=== PATIENT | male | born 1990 | race Caucasian/White ===

== ENCOUNTER 2017-05-23 10:43 | Emergency (ER) | payer BC, OTHER ==
[~2017-05-23] VITALS: Ht 175.3 cm; Wt 120.8 kg
[2017-05-23 10:54] VITALS: BP 101/65
--- NOTE | 2017-05-23 10:59 | NUR ---
PATIENT TO BED 7
--- NOTE | 2017-05-23 11:00 | NUR ---
27/M BIB SELF C/O LEFT RIB PAIN 12/18 POST FALL OFF A [employer] BOARD 05/20/17. HX OF BIPOLAR & DEPRESSION. AAOX4 WITH EVEN AND STEADY GAIT; LUNGS CLEAR BL; PT DENIES ANY FEVER, CP, SOB, OR COUGH AT THIS TIME; PATIENT POSITIONED FOR COMFORT; HOB ELEVATED; BEDRAILS UP X2; BED DOWN. ER MADE AWARE OF PT STATUS. Addendum: 05/23/17 at 1207 by [email or web address] DENIES LOC
[2017-05-23] MEDS ORDERED: KETOROLAC 60 MG/2 ML VIAL IM ONE (13:00)
[2017-05-23 13:29] VITALS: BP 132/77
--- NOTE | 2017-05-23 13:29 | NUR ---
Patient discharged with BP 132/77,DENIES HEADACHE AT THIS TIME.MD MADE AWARE. Written and verbal after care instructions given and explained. Patient alert, oriented and verbalized understanding of instructions. Ambulatory with steady gait. All questions addressed prior to discharge. ID band removed. Patient advised to follow up with PMD. Rx of MOTRIN given. Patient educated on indication of medication including possible reaction and side effects. Opportunity to ask questions provided and answered.
== END 2017-05-23 13:29 | disposition home or self-care (01) ==
LOC: MED 10:43
DX: S20.20XA Contusion of thorax, unspecified, initial encounter (principal); F32.9 Major depressive disorder, single episode, unspecified; F17.210 Nicotine dependence, cigarettes, uncomplicated; V00.131A Fall from skateboard, initial encounter; Y93.51 Activity, roller skating (inline) and skateboarding; Y92.89 Other specified places as the place of occurrence of the external cause; Y99.8 Other external cause status
CPT/HCPCS: 71101; 96372; 99284; J1885

== ENCOUNTER 2019-11-28 02:50 | Inpatient (IN) | payer OTHER ==
[~2019-11-28] VITALS: Ht 182.9 cm; Wt 113.4 kg
--- NOTE | 2019-11-28 02:50 | NUR ---
PT BIBA AND ON 5150 FOR COMBATIVE AT HOME. PER EMS PT HAS NOT SLEPT IN 2 WEEKS AND HAS STOPPED TAKING LITHIUM X 2 WEEKS AGO. PT IS AAXO. PT UNABLE TO ANSWER QUESTIONS. PT YELLING AND BEING AGRESSIVE WITH MEDICAL STAFF. PT VSS. EMS STATE PT IS NOT ON DRUGS OR UNDER THE INFULENCE. PT PLACED IN RESTRAINTS. PMSC GOOD PRIOR TO AND AFTER RESTRAINTS. JACKI DRIVER AT BEDSIDE SITTING WITH PT. SKIN IS PINK/WARM/DRY; LUNGS CLEAR BL; HR EVEN AND REGULAR; HOB ELEVATED; BEDRAILS UP X2; BED DOWN. ER MD MADE AWARE OF PT STATUS.
[2019-11-28 02:51] VITALS: BP 110/81
[2019-11-28] MEDS ORDERED: diphenhydrAMINE 50 MG/ML VIAL IM ONE (02:55)
[2019-11-28] MEDS ORDERED: HALOPERIDOL IM 5 MG/ML VIAL IM ONE (02:55)
[2019-11-28] MEDS ORDERED: LORazepam 2 MG/ML VIAL IM ONE (02:55)
[2019-11-28] MEDS ORDERED: NACL 0.9% 1,000 ML IV ONE ×2 (02:55→05:25)
--- NOTE | 2019-11-28 03:06 | NUR ---
LAB AT BEDSIDE. EXPLAINED TO LAB, LET PT CALM DOWN AFTER MEDICATION. THEN DRAW LABS.
[2019-11-28 03:47] LABS: BASOPHILS # (AUTO) 0.1 K/uL (0.00-0.22); BASOPHILS % (AUTO) 0.4 % (0.0-2.0); EOSINOPHILS % (AUTO) 0.1 % (0.0-4.0); HEMATOCRIT 45.5 % (36-52); HEMOGLOBIN 15.1 g/dL (12.0-18.0); LYMPHOCYTES # (AUTO) 0.9 K/uL (2.0-11.5); MEAN CORPUSCULAR HEMOGLOBIN 28 pg (27-31); MEAN CORPUSCULAR HGB CONC 33 g/dL (33-37); MEAN CORPUSCULAR VOLUME 84.9 fL (80-94); MONOCYTES # (AUTO) 0.8 K/uL (0.8-1.0); MONOCYTES % (AUTO) 4.3 % (1.7-9.3); NEUTROPHILS # (AUTO) 16.2 K/uL (1.8-7.7); NEUTROPHILS % (AUTO) 90.2 % (42.2-75.2); PLATELET COUNT (AUTO) 378 K/uL (140-450); RED BLOOD CELL COUNT(AUTO) 5.36 MIL/uL (4.20-6.10); RED CELL DISTRIBUTION WIDTH 14.4 % (11.6-13.7)
[2019-11-28 04:01] LABS: ALBUMIN 3.9 g/dL (3.4-5.0); ANION GAP 13.1 (8-16); ASPARTATE AMINOTRANSFERASE 67 U/L (15-37); CARBON DIOXIDE 24.3 mmol/L (21-32); CHLORIDE 100 mmol/L (98-107); CREATININE 1.4 mg/dL (0.6-1.3); GFR ARICAN-AMERICAN 77 mL/min (>90); GLUCOSE 158 mg/dL (74-106); POTASSIUM 3.4 mmol/L (3.5-5.1); SODIUM SERUM 134 mmol/L (136-145); TOTAL BILIRUBIN 0.4 mg/dL (0.0-1.0); UREA NITROGEN, BLOOD 10 mg/dL (7-18)
[2019-11-28 04:03] LABS: ACETAMINOPHEN < 0.5 ug/ml (10-30); SALICYLATE < 2.8 mg/dL (2.8-20.0)
--- NOTE | 2019-11-28 04:08 | NUR ---
PT RESTING COMFORTABLY IN BED. VSS. PULSE OX ON PT MONITORING PT OXYGEN SATURATION. RESTRAINTS DC.
[2019-11-28 04:20] LABS: BARBITURATE, URINE NEGATIVE ng/ml (NEG <=200); BENZODIAZEPINE, URINE NEGATIVE ng/mL (NEG <=200); CANNABINOID, URINE NEGATIVE ng/mL (NEG <=50); COCAINE, URINE NEGATIVE ng/mL (NEG <=300); OPIATE, URINE NEGATIVE ng/mL (NEG <=2000); PHENCYCLIDINE SCREEN,URINE NEGATIVE ng/mL (NEG <=25)
--- NOTE | 2019-11-28 05:27 | NUR ---
NO CHANGES FROM PREVIOUS ASSESSMENT. PT RESTING COMFORTABLY IN BED. VSS. WAITING FOR PT TO WAKE UP ENOUGH FOR TELEPSYCHE CALL.
[2019-11-28 05:31] LABS: BILIRUBIN,URINE NEGATIVE (NEGATIVE); BLOOD, URINE 2+ (NEGATIVE); COLOR,URINE YELLOW (YELLOW); LEUKOCYTE ESTERASE ,URINE NEGATIVE (NEGATIVE); NITRITE, URINE NEGATIVE (NEGATIVE); UGLUCOSE NEGATIVE (NEGATIVE)
[2019-11-28 05:40] LABS: APPEARANCE,URINE SLIGHTLY HAZY (CLEAR)
[2019-11-28 05:41] LABS: RBC,URINE 20-50 /HPF (0-5); WBC,URINE 0-5 /HPF (0-5)
--- NOTE | 2019-11-28 05:54 | NUR ---
[facility] aware of patient. Will Assist with placement if and when needed and requested
[2019-11-28 06:26] LABS: HEMATOCRIT 44.7 % (36-52); HEMOGLOBIN 14.7 g/dL (12.0-18.0); MEAN CORPUSCULAR HEMOGLOBIN 28 pg (27-31); MEAN CORPUSCULAR HGB CONC 33 g/dL (33-37); MEAN CORPUSCULAR VOLUME 85.5 fL (80-94); PLATELET COUNT (AUTO) 343 K/uL (140-450); RED BLOOD CELL COUNT(AUTO) 5.23 MIL/uL (4.20-6.10); RED CELL DISTRIBUTION WIDTH 14.8 % (11.6-13.7); WHITE BLOOD COUNT (AUTO) 17.6 K/uL (4.8-10.8)
--- NOTE | 2019-11-28 06:30 | NUR ---
TELEPSYCH REQUEST INITIATED CONNECT ID [id number]
[2019-11-28 06:47] LABS: LYMPHOCYTES % (MANUAL) 13 % (20-46); MONOCYTES % (MANUAL) 3 % (5-12)
--- NOTE | 2019-11-28 07:19 | NUR ---
report received from JACKI Torres. Addendum: 11/28/19 at 0955 by KENZIE 1:1 siena is at bedside.
--- NOTE | 2019-11-28 07:43 | NUR ---
PSYCHIATRIST IS EVALUATING PT VIA TELEPSYCH AT THIS TIME.
--- NOTE | 2019-11-28 08:15 | NUR ---
PT IS EATING AT BEDSIDE.
--- NOTE | 2019-11-28 09:01 | NUR ---
[facility] received pt packet via fax. Will begin working on locating psych placement at this time. Will contact ER with updates on placement
--- NOTE | 2019-11-28 09:55 | NUR ---
pt is sleeping in the bed with vss shows on the monitor. Addendum: 11/28/19 at 0955 by MED 1:1 sitter is at bedside.
[2019-11-28] MEDS ORDERED: NICOTINE TRANSD SYS 7 MG/24 HR PATCH TD ONE (10:05)
--- NOTE | 2019-11-28 11:02 | NUR ---
PT IS RESTING IN THE BED. VSS.
[2019-11-28] MEDS ORDERED: LIB25 PO ×2 (11:23)
[2019-11-28] MEDS ORDERED: DOCUSATE SODIUM 100 MG GELCAP PO PRN (13:10)
[2019-11-28] MEDS ORDERED: ONDANSETRON 4 MG/2 ML VIAL IM/IVP PRN (13:10)
[2019-11-28] MEDS ORDERED: ACETAMINOPHEN 325 MG TAB PO PRN (13:10)
[2019-11-28] MEDS ORDERED: traZODone 50 MG TAB PO PRN (13:15)
[2019-11-28] MEDS: NACL 0.9% 1,000 ML IV SCH ×2 (13:27→14:26)
--- NOTE | 2019-11-28 13:27 | NUR ---
ULTRASOUND AT BEDSIDE.
[2019-11-28] MEDS ORDERED: POTASSIUM CHLORIDE 10 MEQ TABER PO SCH (14:00)
[2019-11-28 14:10] VITALS: BP 127/76
--- NOTE | 2019-11-28 14:10 | NUR ---
Patient will be admitted to care of SUICIDAL IDEATION. Admited to MED-SURG. Will go to room 109B. Belongings list completed. Report to JACKI GAN.
--- NOTE | 2019-11-28 14:10 | NUR ---
REPORT GIVEN FROM ER NURSE LACEY-JACKI. PT ARRIVED VIA WHEELCHAIR AND SELF AMBULATED TO UNIT BED. PT RESTING IN BED, AOX4, ON ROOM AIR WITH IV SITE RIGHT FA #20G GUNNING NS BOLUS. [address]. DISCUSSED PLAN OF CARE AND PT VERBALIZED UNDERSTANDING. NO S/S OF RESPIRATORY DISTRESS OR DISCOMFORT NOTED AT THIS TIME. WILL CONTINUE TO MONITOR.
[2019-11-28 14:49] LABS: PROTHROMBIN TIME 10.5 secs (10.8-13.4)
[2019-11-28 15:18] LABS: MAGNESIUM 2.4 mg/dL (1.8-2.4); PHOSPHORUS 3.8 mg/dL (2.5-4.9); THYROID STIMULATING HORMONE 2.52 uIU/mL (0.34-3.74)
[2019-11-28] MEDS ORDERED: LORazepam 2 MG/ML VIAL IM/IVP PRN (15:40)
[2019-11-28 16:00] VITALS: BP 141/87
--- NOTE | 2019-11-28 16:00 | NUR ---
PT CONTINUES TO REST IN BED. NO S/S OF RESPIRATORY DISTRESS OR DISCOMFORT NOTED AT THIS TIME. WILL CONTINUE TO MONITOR.
--- NOTE | 2019-11-28 16:05 | NUR ---
Psych referral has been faxed to the following facilities for review: [facility]
[2019-11-28] MEDS ORDERED: TAMSULOSIN 0.4 MG CAP PO SCH (18:00)
--- NOTE | 2019-11-28 18:00 | NUR ---
SCHEDULED MEDICATION FLOMAX AND DINNER TRY TO BE GIVEN AFTER ULTRASOUND KIDNEYS/LIVER. PT AWARE. CONTACTED RADIOLOGY/US AND PT WILL BE NEXT IN LINE. PT ALSO AWARE.
--- NOTE | 2019-11-28 19:15 | NUR ---
RECEIVED REPORT AM SHIFT, MALIK RN PT INSIDE ROOM, STANDING GROOMING HIMSELF NEAR THE SINK, AOX4, ON ROOM AIR WITH IV SITE RIGHT FA #20G RUNNING NS AT 110 ML/HR . ON 5150 HOLD FOR SUICIDAL IDEATION. NO S/S OF RESPIRATORY DISTRESS OR DISCOMFORT NOTED AT THIS TIME. SAFETY PRECAUTIONS IN PLACE. W/ 1: 1 SITTER. WILL CONTINUE TO MONITOR.
[2019-11-28] MEDS ORDERED: LITHIUM CARBONATE 300 MG TAB PO SCH (21:00)
[2019-11-28] MEDS ORDERED: QUEtiapine FUMARATE 25 MG TAB PO SCH (21:00)
--- NOTE | 2019-11-28 21:15 | NUR ---
PT JUST FINISHED USD OF THE LIVER AND KIDNEYS; PT GIVEN DINNER TRAY FOR FOOD; THEN ADMINISTERED MEDS
--- NOTE | 2019-11-28 22:00 | NUR ---
CHECKED ON PATIENT CHATTING W/ REFUGIOTER, PT IN GOOD CONDITION; NO HALLUCINATIONS; NO SIGNS OF S.I
[2019-11-29] VITALS: BP 132/82
--- NOTE | 2019-11-29 00:19 | NUR ---
PT ANXIOUS, PT SAID HE WANTS TO TALK TO GIRLFRIEND; AND THAT HE WANTS HIS JACKET BUT WE LEAH NOT ALLOWED TO GIVE IT TO HIM. EXPLAINED TO HIM BUT PT GET MORE ANXIOUS
--- NOTE | 2019-11-29 05:24 | NUR ---
Still no beds at any of the following facilities; [facility], no answer Susan Hand has to be covid tested
[2019-11-29 06:32] LABS: BASOPHILS # (AUTO) 0.1 K/uL (0.00-0.22); BASOPHILS % (AUTO) 1.1 % (0.0-2.0); EOSINOPHILS # (AUTO) 0.3 K/uL (0-0.4); EOSINOPHILS % (AUTO) 3.2 % (0.0-4.0); HEMATOCRIT 43.7 % (36-52); HEMOGLOBIN 14.4 g/dL (12.0-18.0); LYMPHOCYTES # (AUTO) 2.3 K/uL (2.0-11.5); LYMPHOCYTES % (AUTO) 23.6 % (20.5-51.1); MEAN CORPUSCULAR HEMOGLOBIN 29 pg (27-31); MEAN CORPUSCULAR HGB CONC 33 g/dL (33-37); MEAN CORPUSCULAR VOLUME 86.3 fL (80-94); MONOCYTES # (AUTO) 0.7 K/uL (0.8-1.0); MONOCYTES % (AUTO) 6.8 % (1.7-9.3); NEUTROPHILS # (AUTO) 6.4 K/uL (1.8-7.7); NEUTROPHILS % (AUTO) 65.3 % (42.2-75.2); PLATELET COUNT (AUTO) 319 K/uL (140-450); RED BLOOD CELL COUNT(AUTO) 5.07 MIL/uL (4.20-6.10); RED CELL DISTRIBUTION WIDTH 14.8 % (11.6-13.7); WHITE BLOOD COUNT (AUTO) 9.8 K/uL (4.8-10.8)
[2019-11-29 07:13] LABS: ANION GAP 14.4 (8-16); CARBON DIOXIDE 26.6 mmol/L (21-32); CREATININE 0.8 mg/dL (0.6-1.3)
--- NOTE | 2019-11-29 07:20 | NUR ---
RECEIVED BEDSIDE REPORT FROM WIRE STOCKKEEPER NURSE FOR CONTINUITY OF CARE. PT IS AA&OX4; AMBULATORY. RESPIRATIONS ARE EVEN AND UNLABORED, BREATHING TO RA. SKIN COLOR APPROPRIATE FOR ETHNICITY. R FOREARM IV IS PATENT AND INTACT. REVIEWED PLAN OF CARE WITH PT. SAFETY MEASURES IN PLACE; BED IN LOW POSITION, CALL LIGHT WITHIN REACH. SITTER AT BEDSIDE, 1:1, FOR 5150 HOLD. NO ACUTE DISTRESS NOTED.
--- NOTE | 2019-11-29 07:47 | NUR ---
recieved report from noc shift there are no avail beds at contracted facilities will cont to monitor and assist in placement
[2019-11-29] MEDS ORDERED: TAMSULOSIN 0.4 MG CAP PO SCH (08:30)
[2019-11-29] MEDS ORDERED: LITHIUM CARBONATE 300 MG TAB PO SCH (09:00)
[2019-11-29] MEDS ORDERED: NICOTINE TRANSD SYS 14 MG/24 HR PATCH TD SCH (09:00)
--- NOTE | 2019-11-29 09:00 | NUR ---
PT'S SCHEDULED MEDICATIONS GIVEN. MEDICATION EDUCATION PROVIDED, WITH PT VERBALIZING UNDERSTANDING. NICOTINE PATCH APPLIED TO L UPPER CHEST. NO ACUTE DISTRESS NOTED. SAFETY MEASURES IN PLACE. SITTER 1:1. WILL CONTINUE TO MONITOR.
--- NOTE | 2019-11-29 09:10 | NUR ---
PATIENT HAS BEEN SCREENED AND CATEGORIZED LOW NUTRITION RISK. PATIENT WILL BE SEEN WITHIN 7 DAYS OF ADMISSION. 12/04/[address]
[2019-11-29] MEDS: NACL 0.9% 1,000 ML IV SCH (09:20)
--- NOTE | 2019-11-29 10:05 | NUR ---
ORDERED URINE SPECIMEN COLLECTED.
--- NOTE | 2019-11-29 11:20 | NUR ---
REMEDIAL PROJECT MANAGER NOTE: Basic Screen: Yes High Risk DC Screen [place]: EUSEBIO Payton Relationship: MOTHER Pre-Admission Living Arrangements: Lives with Other Prior ADL Independent Current Home Health Name/Tel: N/A Current DME/02 Name/Tel: N/A Current Hospice Name/Tel: N/A Current Dialysis Name/Tel: N/A Healthcare Decision Maker: Patient Advance Directive No Physician Orders for Life Sustaining Treatment Form No Information Taught: Activity Person Taught: Patient Teaching Tools: Community Resources Computer Generated Print Factors Affecting Learning: None Participation Level: Active Evaluation: Verbalizes Understanding Needs Additional Education: No Discipline: Case Mgt/Social Svcs Will require assistance post discharge: No Referred to Keyseater Operator: No Tentative Discharge Plan Summary: PATIENT IS A 29-YEAR-OLD MALE ADMITTED FOR SUICIDAL IDEATION. PATIENT HAS PMHX OF SCHIZOPHRENIA, BIPOLAR II DISORDER, AND MAJOR DEPRESSIVE DISORDER. PATIENT WAS ADMITTED FROM HOME WHERE HE LIVES WITH HIS GRANDPARENTS. SW MET WITH PATIENT AT BEDSIDE TO VERIFY DEMOGRAPHICS. PER PATIENT, HE IS NO LONGER FEELING SUICIDAL AND STATES THAT HE BLACKED OUT LAST NIGHT AND HAS NO RECOLLECTION OF HOW HE WAS HOSPITALIZED. PATIENT STATED THAT HE HAS A HISTORY OF BIPOLAR II DISORDER BUT DENIED PREVIOUSLY MENTIONED DIAGNOSES. PATIENT STATED THAT HE TAKES LITHIUM. SW PROVIDED PATIENT MH RESOURCES. PATIENT VERBALIZED APPRECIATION. PATIENT DENIES SUBSTANCE ABUSE HISTORY. TENTATIVE DISCHARGE PLAN IS FOR PATIENT TO RETURN HOME DEPENDING ON PSYCHIATRIC CONSULT. NO FURTHER NEEDS IDENTIFIED. Signature: ANTIONE IRWIN Date: November 29, 2019 Time: 11:20
[2019-11-29 12:00] VITALS: BP 142/95
--- NOTE | 2019-11-29 12:06 | NUR ---
PT IS SITTING AT SIDE OF BED, TALKING. IV ROCEPHIN IS RUNNING, PER ORDERS. IV FLUSHED. NO ACUTE DISTRESS NOTED. SAFETY MEASURES IN PLACE. SITTER 1:1.
--- NOTE | 2019-11-29 12:26 | NUR ---
Received call from [facility] s/w Cindy. Patient has been ACCEPTED to the following: [place] [facility] [id number]# [id number] [phone] Dr. Phillips
--- NOTE | 2019-11-29 14:10 | NUR ---
DR WARD AT BEDSIDE ASSESSING PT. NO ACUTE DISTRESS NOTED.
[2019-11-29] MEDS ORDERED: QUET25TA46 PO (16:16)
[2019-11-29] MEDS ORDERED: ESK300 PO ×2 (16:16)
[2019-11-29] MEDS ORDERED: TRAZ-466 PO (16:16)
[2019-11-29 16:37] VITALS: BP 142/95
--- NOTE | 2019-11-29 16:44 | NUR ---
DISCHARGE PLANNING NOTE: MATTHEW CONTACTED [facility] AND SPOKE TO [employer] TO SET UP TRANSPORTATION TO [address] [address] [address] [phone]. ACCEPTING PHYSICIAN IS DR. MARCELO. MATTHEW ARRANGED FOR TRANSPORTATION TO BE FOR WILL CALL. MATTHEW INFORMED CHARGE NURSE AND FAXED [facility] MEDI-ANDREA FORM. CHARGE NURSE STATED SHE WOULD CONTACT [facility] WHEN PATIENT IS READY TO BE TRANSPORTED TO [facility].
--- NOTE | 2019-11-29 17:58 | NUR ---
GAVE REPORT TO PASQUALE AT [facility]. DISCHARGE INSTRUCTIONS EXPLAINED TO PATIENT, WITH PT VERBALIZING UNDERSTANDING. ALL PAPERWORK SIGNED. ALL OF PT'S BELONGINGS, AND DISCHARGE PACKET IN PT'S POSSESSION. ARM BANDS AND IV REMOVED, WITH IV CATHETER INTACT. ESCORTED BY TRANSPORT PERSONNEL VIA GURNEY. PT IS TO TRANSFER TO [facility] BY AMBULANCE. PT IN STABLE CONDITION.
== END 2019-11-29 17:50 | disposition short-term general hospital (02) | DRG 465 ==
LOC: MED 02:50 → MTU 11:30
PROVIDERS: ADMIT General Practice; ATTEND General Practice
DX: N20.0 Calculus of kidney (principal); N17.0 Acute kidney failure with tubular necrosis; F43.9 Reaction to severe stress, unspecified; E87.1 Hypo-osmolality and hyponatremia; E87.6 Hypokalemia; D72.829 Elevated white blood cell count, unspecified; F20.9 Schizophrenia, unspecified; F17.200 Nicotine dependence, unspecified, uncomplicated; I10 Essential (primary) hypertension; G47.00 Insomnia, unspecified; E78.5 Hyperlipidemia, unspecified; R31.29 Other microscopic hematuria; F30.9 Manic episode, unspecified
CPT/HCPCS: 36415; 71045; 76705; 76770; 80048; 80053; 80178; 80305; 81001; 82140; 83036; 83690; 83735; 83880; 84100; 84134; 84443; 85025; 85610; 85730; 87040; 87081; 99285; C1758; G0480; G0482; J0696; J1200; J1630; J2060; J7030; J7060; Q0092

== ENCOUNTER 2022-10-17 07:20 | Emergency (ER) | payer OTHER ==
[~2022-10-17] VITALS: Ht 180.3 cm; Wt 133.8 kg
[~2022-10-17 07:20] MED LIST: ESK300 PO; QUET25TA46 PO; TRAZ-466 PO
[2022-10-17 07:25] VITALS: BP 150/90
--- NOTE | 2022-10-17 07:33 | NUR ---
PT AMBULATED TO ER BED 6
--- NOTE | 2022-10-17 07:41 | NUR ---
SIN AT BEDSIDE FOR EVALUATION
--- NOTE | 2022-10-17 07:47 | NUR ---
32YO MALE PT C/O INCREASED UPPER LIP SWELLING X3DAYS. REPORTS SUDDEN AND INITIAL ONSET A6ZEICS. DENIES PAIN, CHANGE IN DAILY ROUTINE, N/V/D, FEVER, CHILLS OR SOB. PT AAOX4, RESPIRATIONS EVEN AND UNLABORED. HOB POSITIONED PER COMFORT HX:DENIES NKA
[2022-10-17] MEDS ORDERED: predniSONE 20 MG TAB PO ONE (07:50)
[2022-10-17] MEDS ORDERED: LORATADINE 10 MG TAB PO ONE (07:50)
[2022-10-17] MEDS ORDERED: PRED20TA5 PO (07:58)
[2022-10-17] MEDS ORDERED: LORA10TA19 PO (07:58)
[2022-10-17] MEDS ORDERED: EPIN1KIT31 IM (08:14)
--- NOTE | 2022-10-17 08:41 | NUR ---
Patient discharged with v/s stable. Written and verbal after care instructions FOR ANGIOEDEMA given and explained. Patient alert, oriented and verbalized understanding of instructions. Ambulatory with steady gait. All questions addressed prior to discharge. ID band removed. Patient advised to follow up with PMD. Rx of EPIPEN, CLARITIN AND DELTASONE given. Opportunity to ask questions provided and answered.
--- NOTE | 2022-10-17 08:43 | NUR ---
The patient's care was reviewed and supervised by Agency [facility] ED, RN.
== END 2022-10-17 08:41 | disposition home or self-care (01) ==
LOC: MED 07:20
DX: K13.0 Diseases of lips (principal); T78.3XXA Angioneurotic edema, initial encounter
CPT/HCPCS: 99283; J7512

== ENCOUNTER 2023-05-18 04:45 | Inpatient (IN) | payer OTHER ==
[~2023-05-18] VITALS: Ht 180.3 cm; Wt 135.6 kg
[~2023-05-18 04:45] MED LIST changes: +EPIN1KIT31 IM; +LORA10TA19 PO; +PRED20TA5 PO
[2023-05-18 04:50] VITALS: BP 136/83; PULSE 122; RESP 18; TEMP 98; O2SAT 97
[2023-05-18] MEDS ORDERED: KETOROLAC 30 MG/ML VIAL IVP ONE (05:40)
[2023-05-18] MEDS ORDERED: NACL 0.9% 1,000 ML IV ONE (05:40)
[2023-05-18 06:15] LABS: APPEARANCE,URINE CLEAR (CLEAR); BILIRUBIN,URINE NEGATIVE (NEGATIVE); BLOOD, URINE 1+ (NEGATIVE); COLOR,URINE YELLOW (YELLOW); LEUKOCYTE ESTERASE ,URINE NEGATIVE (NEGATIVE); NITRITE, URINE NEGATIVE (NEGATIVE); PROTEIN,URINE NEGATIVE (NEGATIVE); UGLUCOSE NEGATIVE (NEGATIVE); UROBILINOGEN,URINE 0.2 EU/dL (0.2 - 1)
[2023-05-18] MEDS ORDERED: metroNIDAZOLE 500 MG/NS PREMIX 100 ML IV ONE (06:15)
[2023-05-18] MEDS ORDERED: PIPERACILLIN/TAZOBACTAM 3.375 GM in DEXTROSE 5% 50 ML IV ONE (06:15)
[2023-05-18 06:27] LABS: BACTERIA,URINE 0-2 /HPF (None Seen); RBC,URINE 0-5 /HPF (0-5); SQUAMOUS EPITHELIAL CELL,UR 4-10 (MOD) /LPF (0-3 (FEW)); WBC,URINE 0-5 /HPF (0-5)
[2023-05-18] MEDS ORDERED: PIPERACILLIN/TAZOBACTAM 3.375 GM VIAL IV ONE (06:30)
[2023-05-18 06:40] LABS: BASOPHILS # (AUTO) 0.1 K/uL (0.00-0.22); BASOPHILS % (AUTO) 0.8 % (0.0-2.0); EOSINOPHILS # (AUTO) 0.1 K/uL (0-0.4); EOSINOPHILS % (AUTO) 0.4 % (0.0-4.0); HEMATOCRIT 43.7 % (36-52); HEMOGLOBIN 14.4 g/dL (12.0-18.0); LYMPHOCYTES # (AUTO) 2.5 K/uL (2.0-11.5); LYMPHOCYTES % (AUTO) 13.3 % (20.5-51.1); MEAN CORPUSCULAR HEMOGLOBIN 27 pg (27-31); MEAN CORPUSCULAR HGB CONC 33 g/dL (33-37); MEAN CORPUSCULAR VOLUME 82.7 fL (80-94); MONOCYTES # (AUTO) 1.8 K/uL (0.8-1.0); MONOCYTES % (AUTO) 9.5 % (1.7-9.3); NEUTROPHILS # (AUTO) 14.5 K/uL (1.8-7.7); PLATELET COUNT (AUTO) 390 K/uL (140-450); RED BLOOD CELL COUNT(AUTO) 5.28 MIL/uL (4.20-6.10); RED CELL DISTRIBUTION WIDTH 13.7 % (11.6-13.7); WHITE BLOOD COUNT (AUTO) 19.1 K/uL (4.8-10.8)
[2023-05-18 06:52] LABS: ALBUMIN 3.2 g/dL (3.4-5.0); ANION GAP 14.8 (8-16); CALCIUM 8.7 mg/dL (8.5-10.1); CARBON DIOXIDE 25.9 mmol/L (21-32); CREATININE 0.8 mg/dL (0.6-1.3); POTASSIUM 3.7 mmol/L (3.5-5.1); TOTAL BILIRUBIN 0.7 mg/dL (0.0-1.0)
[2023-05-18 06:53] LABS: INR 1.09 (0.8-1.2); PARTIAL THROMBOPLASTIN TIME 29.2 secs (22-35.6); PROTHROMBIN TIME 11.4 secs (10.8-13.4)
[2023-05-18 07:32] VITALS: O2SAT 97
[2023-05-18] MEDS ORDERED: ONDANSETRON 4 MG/2 ML VIAL IVP PRN (09:20)
[2023-05-18] MEDS ORDERED: MAGNESIUM OXIDE 400 MG TAB PO PRN (09:20)
[2023-05-18] MEDS ORDERED: MORPHINE SULFATE 4 MG/ML SYR IVP PRN (09:20)
[2023-05-18] MEDS ORDERED: MAG SULF 2000 MG/WATER PREMIX 50 ML IV PRN (09:20)
[2023-05-18] MEDS ORDERED: ACETAMINOPHEN 325 MG TAB PO PRN (09:20)
[2023-05-18] MEDS ORDERED: POTASSIUM CHLORIDE 10 MEQ TABER PO PRN (09:20)
[2023-05-18] MEDS ORDERED: KCL 20 MEQ IN 100 mL PREMIX 200 ML IV PRN (09:20)
[2023-05-18 09:32] VITALS: O2SAT 97
[2023-05-18] MEDS: NACL 0.9% 1,000 ML IV SCH ×2 (09:57→22:13)
[2023-05-18 10:50] VITALS: RESP 20; O2SAT 98
[2023-05-18] MEDS: LEVOFLOXACIN 500 MG/D5W PREMIX 100 ML IV SCH (11:04)
[2023-05-18] MEDS: metroNIDAZOLE 500 MG/NS PREMIX 100 ML IV SCH ×2 (13:05→22:11)
[2023-05-18 16:00] VITALS: BP 153/94; PULSE 116; RESP 18; TEMP 99; O2SAT 98
[2023-05-18] MEDS ORDERED: LIDOCAINE/EPI MPF 1%1:200000 30 ML VIAL INJ ONE (16:45)
[2023-05-18] MEDS ORDERED: BUPIVACAINE-MPF 0.25% 30 ML VIAL INJ ONE (16:45)
[2023-05-18] MEDS ORDERED: MIDAZOLAM 5 MG/5 ML VIAL ONE (17:46)
[2023-05-18] MEDS ORDERED: fentaNYL citrate 0.05 MG/ML VIAL ONE ×2 (17:46→19:50)
[2023-05-18] MEDS ORDERED: SUGAMMADEX SODIUM 200 MG/2 ML VIAL IV ONE (19:01)
[2023-05-18] MEDS ORDERED: SEVOFLURANE 250 ML BTL INH ONE (19:50)
[2023-05-18] MEDS ORDERED: PROPOFOL 200 MG/20 ML VIAL IV ONE (19:50)
[2023-05-18] MEDS ORDERED: SUCCINYLCHOLINE CHLORIDE 200 MG/10 ML VIAL IVP ONE (19:50)
[2023-05-18] MEDS ORDERED: ROCURONIUM 50 MG/5 ML VIAL IV ONE (19:50)
[2023-05-18 20:00] VITALS: PULSE 110; RESP 18; O2SAT 93
[2023-05-19] VITALS: BP 152/88; PULSE 110; RESP 18; TEMP 98.9; O2SAT 93
[2023-05-19] MEDS: HYDROcodone/APAP 5/325 MG 1 TAB TAB PO PRN ×2 (00:04→08:51)
[2023-05-19] MEDS: metroNIDAZOLE 500 MG/NS PREMIX 100 ML IV SCH ×3 (04:22→20:47)
[2023-05-19 05:36] LABS: BASOPHILS # (AUTO) 0.1 K/uL (0.00-0.22); BASOPHILS % (AUTO) 0.3 % (0.0-2.0); HEMATOCRIT 44.9 % (36-52); HEMOGLOBIN 14.7 g/dL (12.0-18.0); LYMPHOCYTES # (AUTO) 1.2 K/uL (2.0-11.5); LYMPHOCYTES % (AUTO) 6.4 % (20.5-51.1); MEAN CORPUSCULAR HEMOGLOBIN 27 pg (27-31); MEAN CORPUSCULAR HGB CONC 33 g/dL (33-37); MEAN CORPUSCULAR VOLUME 83.7 fL (80-94); MONOCYTES # (AUTO) 0.6 K/uL (0.8-1.0); MONOCYTES % (AUTO) 2.9 % (1.7-9.3); NEUTROPHILS # (AUTO) 17.4 K/uL (1.8-7.7); NEUTROPHILS % (AUTO) 90.4 % (42.2-75.2); PLATELET COUNT (AUTO) 432 K/uL (140-450); RED BLOOD CELL COUNT(AUTO) 5.36 MIL/uL (4.20-6.10); RED CELL DISTRIBUTION WIDTH 13.5 % (11.6-13.7); WHITE BLOOD COUNT (AUTO) 19.2 K/uL (4.8-10.8)
[2023-05-19 05:49] LABS: ANION GAP 10.6 (8-16); CALCIUM 8.8 mg/dL (8.5-10.1); CARBON DIOXIDE 28.4 mmol/L (21-32); CREATININE 0.8 mg/dL (0.6-1.3)
[2023-05-19 06:00] LABS: MAGNESIUM 2.2 mg/dL (1.8-2.4); PHOSPHORUS 3.9 mg/dL (2.5-4.9)
[2023-05-19 08:00] VITALS: BP 119/77; PULSE 98; RESP 18; TEMP 97.4; O2SAT 93
[2023-05-19] MEDS: NACL 0.9% 1,000 ML IV SCH ×2 (10:14→22:50)
[2023-05-19] MEDS: LEVOFLOXACIN 500 MG/D5W PREMIX 100 ML IV SCH (10:14)
[2023-05-19 16:00] VITALS: BP 130/81; PULSE 98; RESP 18; TEMP 98.3; O2SAT 92
[2023-05-19 20:00] VITALS: PULSE 108; RESP 18; O2SAT 96
[2023-05-20] VITALS: BP 156/97; PULSE 111; RESP 18; TEMP 98.5; O2SAT 96
[2023-05-20] MEDS: NACL 0.9% 1,000 ML IV SCH ×3 (02:46→22:48)
[2023-05-20] MEDS: metroNIDAZOLE 500 MG/NS PREMIX 100 ML IV SCH ×3 (04:49→20:48)
[2023-05-20 06:39] LABS: BASOPHILS # (AUTO) 0.1 K/uL (0.00-0.22); BASOPHILS % (AUTO) 0.5 % (0.0-2.0); EOSINOPHILS % (AUTO) 0.2 % (0.0-4.0); HEMATOCRIT 40.5 % (36-52); HEMOGLOBIN 13.3 g/dL (12.0-18.0); LYMPHOCYTES # (AUTO) 1.5 K/uL (2.0-11.5); MEAN CORPUSCULAR HEMOGLOBIN 27 pg (27-31); MEAN CORPUSCULAR HGB CONC 33 g/dL (33-37); MEAN CORPUSCULAR VOLUME 83.2 fL (80-94); MONOCYTES # (AUTO) 1.2 K/uL (0.8-1.0); MONOCYTES % (AUTO) 8.1 % (1.7-9.3); NEUTROPHILS % (AUTO) 81.2 % (42.2-75.2); PLATELET COUNT (AUTO) 442 K/uL (140-450); RED BLOOD CELL COUNT(AUTO) 4.87 MIL/uL (4.20-6.10); RED CELL DISTRIBUTION WIDTH 13.5 % (11.6-13.7); WHITE BLOOD COUNT (AUTO) 14.8 K/uL (4.8-10.8)
[2023-05-20 08:00] VITALS: BP 137/89; PULSE 120; PULSE 86; RESP 17; RESP 20; TEMP 98.7; O2SAT 96
[2023-05-20] MEDS: LEVOFLOXACIN 500 MG/D5W PREMIX 100 ML IV SCH (11:07)
[2023-05-20 16:00] VITALS: BP 142/86; PULSE 104; RESP 17; TEMP 98.2; O2SAT 97
[2023-05-20 20:00] VITALS: PULSE 103; RESP 16; O2SAT 95
[2023-05-21 04:00] VITALS: BP 140/92; PULSE 94; RESP 16; TEMP 97.8; O2SAT 96
[2023-05-21] MEDS: metroNIDAZOLE 500 MG/NS PREMIX 100 ML IV SCH (04:49)
[2023-05-21 06:56] LABS: BASOPHILS # (AUTO) 0.1 K/uL (0.00-0.22); BASOPHILS % (AUTO) 0.9 % (0.0-2.0); EOSINOPHILS # (AUTO) 0.2 K/uL (0-0.4); EOSINOPHILS % (AUTO) 1.4 % (0.0-4.0); HEMOGLOBIN 13.5 g/dL (12.0-18.0); LYMPHOCYTES # (AUTO) 1.5 K/uL (2.0-11.5); LYMPHOCYTES % (AUTO) 13.5 % (20.5-51.1); MEAN CORPUSCULAR HEMOGLOBIN 27 pg (27-31); MEAN CORPUSCULAR HGB CONC 33 g/dL (33-37); MONOCYTES # (AUTO) 1.1 K/uL (0.8-1.0); NEUTROPHILS # (AUTO) 8.4 K/uL (1.8-7.7); NEUTROPHILS % (AUTO) 74.2 % (42.2-75.2); PLATELET COUNT (AUTO) 470 K/uL (140-450); RED BLOOD CELL COUNT(AUTO) 4.94 MIL/uL (4.20-6.10); RED CELL DISTRIBUTION WIDTH 13.8 % (11.6-13.7); WHITE BLOOD COUNT (AUTO) 11.4 K/uL (4.8-10.8)
[2023-05-21 08:00] VITALS: PULSE 94; RESP 18; O2SAT 96
[2023-05-21] MEDS: LEVOFLOXACIN 500 MG/D5W PREMIX 100 ML IV SCH (10:03)
[2023-05-21] MEDS ORDERED: NUTR1CAP70 PO (13:08)
[2023-05-21] MEDS ORDERED: LEVO750T75 PO (13:08)
[2023-05-21] MEDS ORDERED: METR-435 PO (13:08)
[2023-05-21 14:19] VITALS: BP 140/92; PULSE 94; RESP 18; TEMP 97.8
== END 2023-05-21 17:31 | disposition home or self-care (01) | DRG 710 ==
LOC: MED 04:45 → MTU 09:25
PROVIDERS: ADMIT Hospitalist; ATTEND Hospitalist
PROC: 0DNU0ZZ Release Omentum, Open Approach (ICD-10-PCS; 2023-05-18)
PROC: 0D9W40Z Drainage of Peritoneum with Drainage Device, Percutaneous Endoscopic Approach (ICD-10-PCS; 2023-05-18)
PROC: 0DJW4ZZ Inspection of Peritoneum, Percutaneous Endoscopic Approach (ICD-10-PCS; principal; 2023-05-18 17:00)
DX: A41.9 Sepsis, unspecified organism (principal); K35.33 Acute appendicitis with perforation, localized peritonitis, and gangrene, with abscess; E44.0 Moderate protein-calorie malnutrition; E66.01 Morbid (severe) obesity due to excess calories; F31.9 Bipolar disorder, unspecified; Z53.9 Procedure and treatment not carried out, unspecified reason; K80.20 Calculus of gallbladder without cholecystitis without obstruction; I10 Essential (primary) hypertension; Z68.41 Body mass index [BMI] 40.0-44.9, adult
CPT/HCPCS: 36415; 80048; 80053; 81001; 82374; 83690; 83735; 84100; 85025; 85610; 85730; 86886; 86900; 86901; 87081; 96361; 96365; 96367; 96375; 99285; J0330; J1644; J1885; J1956; J2001; J2250; J2543; J2704; J3010; J3490; J7030; J7120

== ENCOUNTER 2023-08-09 07:32 | Day surgery (SDC) | payer OTHER ==
[~2023-08-09] VITALS: Ht 180.3 cm; Wt 143.3 kg
[~2023-08-09 07:32] MED LIST changes: +LEVO750T75 PO; +METR-435 PO; +NUTR1CAP70 PO; -PRED20TA5 PO
[2023-08-09] MEDS ORDERED: MIDAZOLAM 5 MG/5 ML VIAL ONE (09:09)
[2023-08-09] MEDS ORDERED: fentaNYL citrate 0.05 MG/ML VIAL ONE (09:09)
[2023-08-09] MEDS: MIDAZOLAM 5 MG/5 ML VIAL IV ONE (09:10)
[2023-08-09] MEDS: fentaNYL citrate 0.05 MG/ML VIAL IVP ONE (09:11)
[2023-08-09] MEDS: LIDOCAINE 2% 100 MG/5 ML UJET TP ONE (09:21)
== END 2023-08-09 10:20 | disposition home or self-care (01) ==
LOC: MDS 07:32 → MMU 07:33 → MDS 10:20
PROVIDERS: ATTEND Surgery
DX: Z12.11 Encounter for screening for malignant neoplasm of colon (principal); K35.32 Acute appendicitis with perforation, localized peritonitis, and gangrene, without abscess; E66.01 Morbid (severe) obesity due to excess calories
CPT/HCPCS: 45378; J2250; J3010

== ENCOUNTER 2023-08-22 05:35 | Day surgery (SDC) | payer OTHER ==
[~2023-08-22] VITALS: Ht 170.2 cm; Wt 142.9 kg
[2023-08-22] MEDS ORDERED: SEVOFLURANE 250 ML BTL INH ONE (07:15)
[2023-08-22] MEDS ORDERED: SUGAMMADEX SODIUM 200 MG/2 ML VIAL IV ONE (07:22)
[2023-08-22] MEDS ORDERED: fentaNYL citrate 0.05 MG/ML VIAL ONE (07:23)
[2023-08-22] MEDS ORDERED: MIDAZOLAM 2 MG/2 ML VIAL ONE (07:24)
[2023-08-22] MEDS ORDERED: LIDOCAINE MPF 2% 100 MG/5 ML VIAL INJ ONE (07:32)
[2023-08-22] MEDS ORDERED: ROCURONIUM 50 MG/5 ML VIAL IV ONE ×2 (07:32→08:11)
[2023-08-22] MEDS ORDERED: DEXAMETHASONE 4 MG/ML VIAL ONE ×2 (07:32)
[2023-08-22] MEDS ORDERED: PROPOFOL 200 MG/20 ML VIAL IV ONE (07:32)
[2023-08-22] MEDS ORDERED: ceFAZolin 2,000 MG VIAL ONE (07:37)
[2023-08-22] MEDS: BUPIVACAINE-MPF 0.25% 30 ML VIAL INJ ONE (08:48)
[2023-08-22] MEDS: LIDOCAINE/EPI 1% 1:100000 20 ML VIAL INJ ONE (08:48)
[2023-08-22] MEDS ORDERED: ONDANSETRON 4 MG/2 ML VIAL IVP PRN (09:00)
[2023-08-22] MEDS ORDERED: LACTATED RINGERS 1,000 ML IV SCH (09:00)
[2023-08-22] MEDS ORDERED: BLOOD GLUCOSE MONITORING 1 DEV DEV FS ONE (09:00)
[2023-08-22] MEDS: HYDROmorphone 1 MG/ML AMP IVP PRN (09:40)
[2023-08-22] MEDS ORDERED: HYDROmorphone PFS 2 MG/ML SYR ONE (09:44)
== END 2023-08-22 12:30 | disposition home or self-care (01) ==
LOC: MDS 05:35 → MMU 06:59 → MDS 12:30
PROVIDERS: ATTEND Surgery
DX: K35.32 Acute appendicitis with perforation, localized peritonitis, and gangrene, without abscess (principal); K21.9 Gastro-esophageal reflux disease without esophagitis; E66.01 Morbid (severe) obesity due to excess calories; F31.9 Bipolar disorder, unspecified; Z68.41 Body mass index [BMI] 40.0-44.9, adult
CPT/HCPCS: 44970; 71045; 88304; 88312; 93005; J1100; J1170; J2001; J2250; J2704; J3010; J3490; J7120